=== PATIENT | male | born 1975 | race Caucasian/White ===

== ENCOUNTER 2016-06-05 07:51 | Day surgery (SDC) | payer OTHER ==
[2016-05-31 16:29] VITALS: BMI 31.8
[2016-06-05] MEDS ORDERED: PROPOFOL 20 ML ONE (07:54)
[2016-06-05 10:18] VITALS: TEMP 99
[2016-06-05 10:32] VITALS: BP 121/77; PULSE 69
--- NOTE | 2016-06-07 11:39 | PATH ---
Surgical Pathology Report Patient Name: DAWIT RUCKER [facility]. Rec. #: [id number] /Age/Gender: 1975 (Age: 40) / M Account: [id number] Location: [facility]-ENDOS[facility] Taken: 06/05/2016 Received: 06/05/2016 Reported: 06/07/2016 Physicians: Sukh Anaya M.D. Specimen(s) Received A: BX ANTRUM B: BX GE JUNCTION Clinical History GERD Rule out H pylori gastritis, rule out Duarte's esophagus Final Diagnosis A. STOMACH, ANTRUM, BIOPSY: REACTIVE GASTROPATHY AND MILD CHRONIC GASTRITIS. IMMUNOSTAIN FOR H. PYLORI IS NEGATIVE. B. GE JUNCTION, BIOPSY: SQUAMOUS AND GASTRIC MUCOSA WITH CHRONIC INFLAMMATION. NO INTESTINAL METAPLASIA IDENTIFIED (NO DUARTE'S IDENTIFIED). Electronically Signed Trev Wheeler M.D. Gross Description A. Received in formalin, labeled "antrum" are 2 walters, irregular portions of soft tissue measuring 0.2 cm. in greatest dimension. The specimens are submitted in toto in one cassette. B. Received in formalin, labeled "GE junction" are 2 walters, irregular portions of soft tissue measuring 0.1-0.3 cm. in greatest dimension. The specimens are submitted in toto in one cassette. ANGELINE/06/06/2016 [facility]/06/06/2016
== END 2016-06-05 10:30 | disposition home or self-care (01) ==
LOC: FASU-ENDO 07:51
PROVIDERS: ATTEND Internal Medicine Gastroenterology
PROC: 0DB48ZX Excision of Esophagogastric Junction, Via Natural or Artificial Opening Endoscopic, Diagnostic (ICD-10-PCS; principal; 2016-06-05 09:42)
PROC: 0DB68ZX Excision of Stomach, Via Natural or Artificial Opening Endoscopic, Diagnostic (ICD-10-PCS; 2016-06-05 09:42)
DX: K29.50 Unspecified chronic gastritis without bleeding (principal)
CPT/HCPCS: 88305-TC; 88342-TC

== ENCOUNTER 2017-08-17 11:28 | Emergency (ER) | payer OTHER ==
[2017-08-17] MEDS ORDERED: IBUPROFEN 400 MG TABLET (FP) PO ONE ×2 (11:34→11:42)
[2017-08-17 11:40] VITALS: BP 124/79; PULSE 92; TEMP 98.2; BMI 31.8
--- NOTE | 2017-08-17 11:40 | PDOC ---
History of Present Illness - General Chief Complaint: Injury Stated Complaint: LEFT SHOULDER INJURY Time Seen by Provider: 08/17/17 11:34 History Source: Patient Exam Limitations: No Limitations - History of Present Illness Initial Comments: 08/17/17 11:35 41 y/o male playing baseball today sliding into second injured his left shoulder stretching and hit it on the ground. Able to move it, but in pain. Has not taken anything for the pain, but has bee icing it. No LOC. No other pain at this time. Past History - Past Medical History Allergies/Adverse Reactions: Allergies Allergy/AdvReac Type Severity Reaction Status Date / Time No Known Allergies Allergy Verified 08/17/17 11:31 Home Medications: Ambulatory Orders Famotidine [Pepcid] 40 mg PO DAILY 05/31/16 Ibuprofen 800 mg PO TID #30 tablet 08/17/17 Anemia: No Asthma: No Cancer: No Cardiac Disorders: No CVA: No COPD: No CHF: No Dementia: No Diabetes: No GI Disorders: Yes (GERD) Disorders: No HTN: No Hypercholesterolemia: No Liver Disease: No Seizures: No Thyroid Disease: No - Surgical History Abdominal Surgery: No Appendectomy: No Cardiac Surgery: No Cholecystectomy: No Lung Surgery: No Neurologic Surgery: No Orthopedic Surgery: No - Suicide/Smoking/Psychosocial Hx Smoking Status: Yes Smoking History: Never smoked Number of Cigarettes Smoked Daily: 0 Cigars Per Day: 1 Hx Alcohol Use: Yes ("OCCASIONAL") Drug/Substance Use Hx: No Substance Use Type: None Hx Substance Use Treatment: No Review of Systems - Review of Systems Able to Perform ROS?: Yes Is the patient limited Kuwaiti proficient: No Constitutional: No: Chills, Fever Respiratory: No: Cough, Shortness of Breath Cardiac (ROS): No: Chest Pain Musculoskeletal: Yes: Joint Pain. No: Back Pain, Neck Pain Hematologic/Lymphatic: Yes: Symptoms Reported *Physical Exam - Physical Exam General Appearance: Yes: Nourished, Appropriately Dressed HEENT: positive: EOMI, MG, Normal ENT Inspection Neck: positive: Trachea midline, Normal Thyroid, Supple. negative: Tender, Rigid, Carotid bruit Respiratory/Chest: positive: Chest Tender, Lungs Clear, Normal Breath Sounds. negative: Respiratory Distress Cardiovascular: positive: Regular Rhythm, Regular Rate, S1, S2. negative: Edema , JVD, Murmur Vascular Pulses: Femoral (R): 4+, Femoral (L): 4+, Carotid (R): 4+, Carotid (L) : 4+, Dorsalis-Pedis (R): 4+, Doralis-Pedis (L): 4+ Gastrointestinal/Abdominal: positive: Normal Bowel Sounds, Flat, Soft Lymphatic: negative: Adenopathy, Tenderness, Other Musculoskeletal: positive: Normal Inspection. negative: CVA Tenderness Extremity: positive: Normal Capillary Refill, Normal Inspection, Normal Range of Motion, Tender (tender at AC joint left shuoulder, full ROM, no swelling, pulses 2+/4 b/l in UE, no focal deficits noted). negative: Coldness, Swelling, Erythema Integumentary: positive: Normal Color, Dry, Warm Neurologic: positive: policy checker II-XII NML intact, Fully Oriented, Alert, Normal Mood/ Affect, Normal Response, Motor Strength 5/ ED Treatment Course - ADDITIONAL ORDERS Additional order review: 08/17/17 11:40 Left shoulder injury will obtain x-ray to r/o fracture/dislocation Ibuprofen and ice Pt is in agreement with plan 08/17/17 12:06 x-ray left shoulder: small subtle lateral humeral head fracture - RADIOLOGY Radiology Studies Ordered: Category Date Time Status SHOULDER-LEFT [RAD] Stat Radiology 08/17/17 11:34 Ordered *DC/Admit/Observation/Transfer Diagnosis at time of Disposition: Shoulder fracture, left Qualifiers: Encounter type: initial encounter Fracture type: closed Qualified Code(s): S42.92XA - Fracture of left shoulder girdle, part unspecified, initial encounter for closed fracture - Discharge Dispostion Disposition: HOME Condition at time of disposition: Stable Admit: No - Referrals Referrals: Abelardo Shine MD [Staff Physician] - - Patient Instructions Printed Discharge Instructions: How to Use a Sling Additional Instructions: Ice, Motrin, rest Sling Follow up with Orthopedics - Post Discharge Activity
== END 2017-08-17 12:12 | disposition home or self-care (01) ==
LOC: FER 11:28
DX: S42.92XA Fracture of left shoulder girdle, part unspecified, initial encounter for closed fracture (principal); W18.39XA Other fall on same level, initial encounter; Y93.67 Activity, basketball; Y92.320 Baseball field as the place of occurrence of the external cause; K21.9 Gastro-esophageal reflux disease without esophagitis
CPT/HCPCS: 73030-TC-LT-FY; 99283-25

== ENCOUNTER 2018-10-08 11:25 | Emergency (ER) | payer BC, OTHER | END 2018-10-08 12:23 | disposition home or self-care (01) | LOC: FER 11:25 ==

== ENCOUNTER 2020-02-16 09:27 | Emergency (ER) | payer OTHER ==
--- OUTSIDE RECORDS SUMMARY | 2020-02-16 09:32 | XMS ---
:1975 Author Organization [facility] Care Team Providers Name Role Phone SEBASTIAN AVITIA Unavailable Unavailable ABHI HOFFMAN Unavailable Unavailable Re-disclosure Warning The records that you are about to access may contain information from federally- assisted alcohol or drug abuse programs. If such information is present, then the following federally mandated warning applies: This information has been disclosed to you from records protected by federal confidentiality rules (42 CFR part 2). The federal rules prohibit you from making any further disclosure of this information unless further disclosure is expressly permitted by the written consent of the person to whom it pertains or as otherwise permitted by 42 CFR part 2. A general authorization for the release of medical or other information is NOT sufficient for this purpose. The Federal rules restrict any use of the information to criminally investigate or prosecute any alcohol or drug abuse patient.The records that you are about to access may contain highly sensitive health information, the redisclosure of which is protected by Article 27-F of the [facility] Public Health law. If you continue you may haveaccess to information: Regarding HIV / AIDS; Provided by facilities licensed or operated by the [facility] Office of Mental Health; or Provided by the [facility] Office for People With Developmental Disabilities. If such information is present, then the following [facility] mandated warning applies: This information has been disclosed to you from confidential records which are protected by state law. State law prohibits you from making any further disclosure of this information without the specific written consent of the person to whom it pertains, or as otherwise permitted by law. Any unauthorized further disclosure in violation of state law may result in a fine or detention sentence or both. A general authorization for the release of medical or other information is NOT sufficient authorization for further disclosure. Encounters Encounter Providers Location Date Indications Data Source(s ) Outpatient Attender: ADORE, 05/09/2019 G47.33 [id number] [facility] SEBASTIAN OlsenAdmitter: 05:00:00 AM [facility] SEBASTIAN AVITIA EST Corpor[employer] on RaúlReferrer: ABHI HOFFMAN G47.33 [id number] Insurance Providers Payer name Policy type Policy ID Covered Covered democrat's Policy P ruba / Coverage democrat ID relationship to Rosa Inf ormation type rosa UNITED [id number] SP [id number] HEALTH CARE HMO/POS/EP O AMAGON [id number] HEALTH CARE AETNA [id number] (PPO) EMPIRE [id number] BC/BS BC OUT OF [id number] SP [id number] STATE BC OUT OF [id number] SP [id number] STATE BC PPO [id number] SP [id number] AETNA PPO [id number] SP [id number] 2 Problems, Conditions, and Diagnoses Code Display Name Description Problem Type Effective Dates Data Source(s) G47.33 Obstructive sleep OBSTRUCTIVE SLEEP Diagnosis 05/09/2019 [place] apnea (adult) APNEA (ADULT) 05:00:00 AM EST [facility] (pediatric[facility] (PEDIATRIC) Care Corpora tion
--- NOTE | 2020-02-16 09:38 | TELE ---
HPI Do you have fever,cough or shortness of breath?: No - General Reason For Visit: COVID 19 TEST History Source: Patient Past History - Travel History Traveled outside of the country in the last 30 days: No Close contact w/someone who was outside of country & ill: No - Medical History Allergies/Adverse Reactions: Allergies Allergy/AdvReac Type Severity Reaction Status Date / Time No Known Allergies Allergy Verified 10/08/18 11:26 Home Medications: Ambulatory Orders Naproxen [Naprosyn] 500 mg PO BID PRN #20 tablet 10/08/18 Omeprazole Magnesium [Prilosec Otc] 20 mg PO DAILY 10/08/18 Anemia: No Asthma: No Cancer: No Cardiac Disorders: No CVA: No COPD: No CHF: No Dementia: No Diabetes: No GI Disorders: Yes (GERD) Disorders: No HTN: No Hypercholesterolemia: No Liver Disease: No Seizures: No Thyroid Disease: No - Surgical History Abdominal Surgery: No Appendectomy: No Cardiac Surgery: No Cholecystectomy: No Lung Surgery: No Neurologic Surgery: No Orthopedic Surgery: No - Psycho-Social/Smoking History Smoking Status: Yes Smoking History: Never smoked Number of Cigarettes Smoked Daily: 0 Cigars Per Day: 1 Review of Systems - Review of Systems Able to Perform ROS?: Yes Comments:: 02/16/20 09:35 CONSTITUTIONAL: Absent: fever, chills, diaphoresis, generalized weakness, malaise, loss of appetite HEENT: Absent: rhinorrhea, nasal congestion, throat pain, throat swelling, difficulty swallowing, mouth swelling, ear pain, eye pain, visual Changes CARDIOVASCULAR: Absent: chest pain, loss of consciousness, palpitations, irregular heart rate, peripheral edema RESPIRATORY: Absent: cough, shortness of breath, dyspnea with exertion, orthopnea, wheezing, stridor, hemoptysis GASTROINTESTINAL: Absent: abdominal pain, abdominal distension, nausea, vomiting, diarrhea, constipation, melena, hematochezia SKIN: Absent: rash, itching, pallor NEUROLOGIC: Absent: headache, focal weakness or paresthesias, dizziness, unsteady gait, seizure, mental status changes, bladder or bowel incontinence PSYCHIATRIC: Absent: anxiety, depression, suicidal or homicidal ideation, hallucinations. Limited Maldivian proficient: No *Physical Exam - Physical Exam 02/16/20 09:35 GENERAL: Well developed, well nourished. Awake and alert. No acute distress. PULMONARY: No evidence of respiratory distress. NEUROLOGICAL: Alert, awake, appropriate. PSYCHIATRIC: Cooperative. Good eye contact. Appropriate mood and affect. - Medical Decision Making 02/16/20 10:03 The patient is a 44-year-old male with no past medical history, no allergies, presents to [facility] urgent care for a Covid swab. The video chat was unable to be initiated at this time as patient was driving during time of visit. He states that he had a exposure to a Covid positive patient approximately 11 days ago. He is currently asymptomatic. He has been isolating in a hotel. He is in his usual state of health. A/P: Need for Covid swab On telephone, no symptoms of distress noted. Covid swab ordered and patient referred to [facility] Isolation precautions given. Discharge Diagnosis at time of Disposition: Counseled about COVID-19 virus infection - Referrals Follow-up Referral(s): Fco Arriola MD [Primary Care Provider] - - Patient Instructions
== END 2020-02-16 10:06 | disposition home or self-care (01) ==
LOC: JVIRT 09:27
DX: Z11.59 Encounter for screening for other viral diseases (principal)
CPT/HCPCS: C9803; Q3014-GT; U0003

== ENCOUNTER 2020-06-11 10:03 | Emergency (ER) | payer OTHER | END 2020-06-11 11:44 | disposition home or self-care (01) | LOC: JVIRT 10:03 | DX: Z11.52 Encounter for screening for COVID-19 (principal) | CPT/HCPCS: C9803; G2012-GT; U0003 ==

== ENCOUNTER 2020-06-18 12:24 | Emergency (ER) | payer OTHER | END 2020-06-18 13:28 | disposition home or self-care (01) | LOC: JVIRT 12:24 | DX: Z20.822 Contact with and (suspected) exposure to COVID-19 (principal) | CPT/HCPCS: C9803; G2251-GT; U0003 ==

== ENCOUNTER 2020-06-25 09:24 | Emergency (ER) | payer OTHER | END 2020-06-25 10:41 | disposition home or self-care (01) | LOC: JVIRT 09:24 | DX: Z20.822 Contact with and (suspected) exposure to COVID-19 (principal) | CPT/HCPCS: C9803; G2251-GT; U0003 ==

== ENCOUNTER 2020-06-26 07:19 | Emergency (ER) | payer OTHER ==
[2020-06-26] MEDS ORDERED: KETOROLAC TROMETHAMINE 30 MG/1 ML VIAL IVPUSH ONE (07:26)
[2020-06-26] MEDS ORDERED: SODIUM CHLORIDE 1,000 ML IV ONE (07:26)
[2020-06-26 07:33] VITALS: TEMP 99.2
[2020-06-26] MEDS ORDERED: KETOROLAC TROMETHAMINE 30 MG/1 ML VIAL ONE (07:36)
[2020-06-26 07:57] LABS: BASO % 1.8 % (0-2.0); EOS % 2.2 % (0-4.5); HEMATOCRIT 45.9 % (35.4-49); HEMOGLOBIN 15.8 GM/dl (11.7-16.9); LYMPH % 21.3 % (8-40); MCH 31.3 pg (25.7-33.7); MCHC 34.5 g/dl (32.0-35.9); MEAN CELL VOLUME 90.7 fl (80-96); MEAN PLT VOLUME 7.5 fl (7.5-11.1); MONO % 10.7 % (3.8-10.2); PLATELET COUNT 173 K/MM3 (134-434); RBC 5.06 M/mm3 (4.00-5.60); RDW 12.3 % (11.9-15.9)
[2020-06-26 08:03] LABS: ALBUMIN 4.2 g/dl (3.4-5.0); CALCIUM 8.9 mg/dl (8.5-10); CREATININE 1.2 mg/dl (0.55-1.3); POTASSIUM 4.1 mmol/L (3.5-5.1); TOT PROT 7.4 g/dl (6.4-8.2)
[2020-06-26 10:35] VITALS: BP 125/85; PULSE 77
== END 2020-06-26 10:42 | disposition home or self-care (01) ==
LOC: FER 07:19
PROC: 3E0333Z Introduction of Anti-inflammatory into Peripheral Vein, Percutaneous Approach (ICD-10-PCS; principal; 2020-06-26)
PROC: 3E0337Z Introduction of Electrolytic and Water Balance Substance into Peripheral Vein, Percutaneous Approach (ICD-10-PCS; 2020-06-26)
DX: N20.0 Calculus of kidney (principal); N23 Unspecified renal colic
CPT/HCPCS: 36415; 74176-TC; 80053; 81003; 85025; 87086; 99284-25

== ENCOUNTER 2021-11-09 04:37 | Day surgery (SDC) | payer OTHER ==
[2021-11-06 16:19] VITALS: BMI 32.9
[2021-11-09 09:36] VITALS: TEMP 97.5
[2021-11-09 10:16] VITALS: BP 124/73; PULSE 67
== END 2021-11-09 10:44 | disposition home or self-care (01) ==
LOC: JASU-ENDO 04:37
PROVIDERS: ATTEND Internal Medicine Gastroenterology
PROC: 0DJD8ZZ Inspection of Lower Intestinal Tract, Via Natural or Artificial Opening Endoscopic (ICD-10-PCS; principal; 2021-11-09 09:00)
DX: Z12.11 Encounter for screening for malignant neoplasm of colon (principal)

== ENCOUNTER 2022-11-01 05:45 | Day surgery (SDC) | payer OTHER ==
[2022-10-30 12:29] VITALS: BMI 33.5
[2022-11-01 11:50] VITALS: TEMP 98
[2022-11-01 12:39] VITALS: BP 116/70; PULSE 65; RESP 18
== END 2022-11-01 12:30 | disposition home or self-care (01) ==
LOC: JASU-ENDO 05:45
PROVIDERS: ATTEND Internal Medicine Gastroenterology
PROC: 0DB78ZX Excision of Stomach, Pylorus, Via Natural or Artificial Opening Endoscopic, Diagnostic (ICD-10-PCS; 2022-11-01)
PROC: 0DB48ZX Excision of Esophagogastric Junction, Via Natural or Artificial Opening Endoscopic, Diagnostic (ICD-10-PCS; 2022-11-01)
PROC: 0DB98ZX Excision of Duodenum, Via Natural or Artificial Opening Endoscopic, Diagnostic (ICD-10-PCS; principal; 2022-11-01 12:00)
DX: K29.50 Unspecified chronic gastritis without bleeding (principal); K21.9 Gastro-esophageal reflux disease without esophagitis
CPT/HCPCS: 88305-TC; 88342-TC